=== PATIENT | female | born 2000 | race Caucasian/White ===

== ENCOUNTER 2019-05-25 13:16 | Emergency (ER) | payer MEDICAID ==
[~2019-05-25] VITALS: Ht 157.5 cm; Wt 45.4 kg
--- NOTE | 2019-05-25 13:16 | NUR ---
Dr Armenta at the bedside for MSE.
[2019-05-25] MEDS ORDERED: LORAZEPAM 1 MG TABLET ONE (13:21)
[2019-05-25] MEDS ORDERED: LORAZEPAM 0.5 MG TABLET PO ONE (13:30)
[2019-05-25] MEDS ORDERED: OLANZAPINE 5 MG TABLET ONE (13:45)
[2019-05-25] MEDS ORDERED: OLANZAPINE 5 MG TABLET PO ONE (13:45)
--- NOTE | 2019-05-25 14:26 | NUR ---
Pt gave phone number of her mother, Jacqueline@ [phone], but stated not to call her.
--- NOTE | 2019-05-25 15:04 | NUR ---
Pt requested to call her friend,Yimi. Left message on the #given by Pt @[phone].
--- NOTE | 2019-05-25 15:10 | NUR ---
Patient is resting comfortably in bed with eyes closed, NAD noted.
--- NOTE | 2019-05-25 19:05 | NUR ---
Received handoff report from dayshift RN. Patient in bed sleeping. Breathing even and unlabored. offered fluids / food. Patient declined and stated "im not hungry right now, I just want to sleep". Comfort meauses provided, Denies any pain or discomfort. NAD noted.
--- NOTE | 2019-05-25 20:38 | NUR ---
Patient in bed sleeping but easily arousable. Breathing even and unlabored. Denies any pain or discomfort. A&O x4. NAD noted.
--- NOTE | 2019-05-26 | NUR ---
Patient in bed sleeping. Breathing even and unlabored. Easily arousable. Denies any pain or discomfort. Patient states "I'm still a little tired, I just want to sleep right now". Comfort measures provided. NAD noted
--- NOTE | 2019-05-26 01:50 | NUR ---
Called patient's friend Bhargav at [phone]. no response, left a message to call back. Patient made aware. Offered to take patient to rest room. Patient declined and went back to sleep. frequent visual checks done. Comfort measures provided. NAD noted
--- NOTE | 2019-05-26 03:02 | NUR ---
Patient is AA&O x4. able to ambulate to bathroom with minimal assistance. Breathing even and unlabored. Denies any SOB. Provided food and fluids, able to tolerate well. NAD noted
--- NOTE | 2019-05-26 05:04 | NUR ---
Patient in bed sleeping but easily arousable. Breathing even and unlabored. Denies any pain or discomfort. NAD noted
--- NOTE | 2019-05-26 07:15 | NUR ---
Patient discharged to home in stable conditon. Written and verbal after care instructions given. Patient verbalizes understanding of instructions. Patient ambulating with steady gait. NAD noted
[2019-05-26 07:24] VITALS: BP 116/64
== END 2019-05-26 07:15 | disposition home or self-care (01) ==
LOC: ER 13:16
DX: F15.10 Other stimulant abuse, uncomplicated (principal)
CPT/HCPCS: A4663